=== PATIENT | male | born 1980 | race Caucasian/White ===

== ENCOUNTER → 2016-12-26 11:28 | Outpatient (CLI) | payer OTHER | END | disposition home or self-care (01) | LOC: D.RAD 11:28 | DX: Z02.71 Encounter for disability determination (principal) ==

== ENCOUNTER → 2017-05-26 10:54 | Outpatient (CLI) | payer OTHER | END | disposition home or self-care (01) | LOC: D.RT 10:54 | DX: Z02.71 Encounter for disability determination (principal) ==